=== PATIENT | male | born 1990 | race Caucasian/White ===

== ENCOUNTER 2022-05-25 22:05 | Emergency (ER) | payer OTHER, SELFPAY ==
[2022-05-25 22:06] VITALS: BP 143/93; PULSE 78; RESP 16; TEMP 36.8; O2SAT 96; BMI 27.3
--- NOTE | 2022-05-25 22:33 | EX.ED.DYSGE1 ---
HPI History of Present Illness Chief Complaint: General Illness Informant: patient Narrative Narrative: 3-day worsening sore throat. No fevers. No cough. No headache. No vomiting diarrhea. 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 Started having symptoms 3 days ago. Home test yesterday for COVID is positive. He had COVID back in November 2020 with just loss of taste or smell. No past medical history. He states his throat feels raw and wants rule out for strep. He is tolerating oral fluids. Prior similar symptoms: No PFSH PFSH Medical History no medical history Home Medications oxycodone-acetaminophen 5 mg-325 mg tablet 1 - 2 tab PO Q6H PRN PRN Pain #60 tabs 04/15/17 [Rx Last Taken Unknown] lidocaine HCl 2 % mucosal solution (Lidocaine Viscous) 5 ml mucous membrane TID PRN pain #100 mL 05/26/22 [Rx Last Taken Unknown] nirmatrelvir 300 mg (150 mg x 2)-ritonavir 100 mg tablet (EUA) (Paxlovid 300 mg () See Rx Instructions PO .COMPLEX #30 tabs 05/26/22 [Rx Last Taken Unknown] Allergy/AdvReac Type Severity Reaction Status Date / Time No Known Allergies Allergy Verified 05/25/22 22:08 Social History Smoking Status: Never smoker ROS ROS ED Constitutional Constitutional ED: Denies chills, fever(s) or sweats Eyes Eyes: Denies change in vision ENT ENT ED: Reports sore throat; Denies dysphagia Cardiovascular Cardiovascular: Denies chest pain, leg edema, palpitations or racing heartbeat Respiratory/Chest Respiratory/Chest: Denies cough, dyspnea or dyspnea on exertion Gastrointestinal Gastrointestinal: Denies abdominal pain, diarrhea, nausea or vomiting Genitourinary Genitourinary ED: Denies dysuria, hematuria or urinary frequency Musculoskeletal Musculoskeletal: Denies back pain, extremity pain or neck pain Integumentary Denies rash or wounds Neurologic Neurologic: Denies headache(s), paresthesias or weakness EXAM Physical Exam Const Vital Signs: 05/25/22 22:06 Temperature 98.2 F Temperature Source Temporal Pulse Rate 78 Respiratory Rate 16 Blood Pressure 143/93 H Blood Pressure Mean 109 Pulse Ox 96 Oxygen Delivery Method Room Air Positive well nourished and well developed General Appearance ED: well developed and NAD HEENT Reports moist mucous membranes HEENT Narrative: Posterior pharyngeal erythema, 1+ symmetric tonsils there are small ulcerations in the soft palate is scattered. Airway patent. normocephalic and atraumatic Eyes PERRL, EOMs intact bilaterally and conjunctivae normal General Eye ED: Yes normal appearance of both eyes Neck no lymphadenopathy and supple General: Negative for tenderness Chest Wall Chest: Negative for tenderness Resp normal respiratory effort and normal air movement Effort and Inspection: symmetric chest movement; Negative for respiratory distress Cardio regular rate, regular rhythm and no murmurs Peripheral Pulses: pulses 2+ throughout GI normal to inspection, nondistended, normoactive bowel sounds and non-tender Palpation: Negative for guarding or rebound tenderness present Back/Spine no CVA tenderness and no thoracic nor lumbar tenderness Extremity normal to inspection General Extremety ED: Negative for edema or tenderness General Extremity: Negative for edema Neuro oriented x3 and no sensory deficits noted Sensorium / Orientation: awake and alert Skin no rashes or lesions noted and no wounds MDM MDM MDM Narrative Medical decision making narrative: Patient vital stable nontoxic posterior pharynx erythema with some ulcerations on the soft palate. Rapid strep was negative. He was given Decadron for symptom control. Discussed with him could be viral coxsackie's with [id number] with authorizations. He had positive COVID test at home. He is 3 days and symptoms, he is within the 5-day treatment window for Paxilovid. I offered treatment for which he agreed. He has not any home medications for cross-reactivity's. Additionally given GI cocktail with viscous lidocaine prescription for pharyngitis symptoms. He is given follow-up as an outpatient. Lab Data Attestation: I reviewed the patient's lab results. Discharge Plan Triage Chief Complaint: General Illness ED Provider: Felipe Stover Dx/Rx/DC Orders Clinical Impression: COVID-19 virus infection, Pharyngitis Instructions: Coronavirus Disease 2019 (COVID-19): Caring for Yourself or Others, Self-Care for Sore Throats Prescriptions: New Paxlovid (EUA) 300 mg (150 mg x 2)-100 mg tablet See Rx Instructions .ROUTE .COMPLEX Qty: 30 0RF Rx Instructions: take TWO 150 mg tablets of nirmatrelvir with ONE 100 mg tablet of ritonavir twice daily for 5 days lidocaine HCl [Lidocaine Viscous] 2 % solution 5 ml mucous membrane TID PRN (Reason: pain) Qty: 100 0RF No Action oxycodone-acetaminophen 1 TABLET tablet 1 - 2 tab PO Q6H PRN PRN (Reason: Pain) Qty: 60 0RF Primary Care Provider: Care Physician,No Primary Referrals: Lawanda Rosales [NON-STAFF] - 1 Week if not improving Care Physician,No Primary [Primary Care Provider] - Disposition Disposition: Home, Self Care Discharge Date/Time: 05/26/22 01:17
[2022-05-25] MEDS: dexAMETHasone 4 MG Tablet 12 MG PO (22:44)
[2022-05-26] MEDS: Mag Hydrox/Al Hydrox/Simeth 30 ML UDC PO (00:26)
== END 2022-05-26 01:17 | disposition home or self-care (01) ==
PROVIDERS: Emergency Provider Emergency Medicine; Visit Provider Emergency Medicine
DX: U07.1 COVID-19 (principal); J02.9 Acute pharyngitis, unspecified
CPT/HCPCS: 87880; 99283

== ENCOUNTER → 2024-11-02 | Outpatient (CLI) | payer OTHER, SELFPAY | END | disposition home or self-care (01) | LOC: PSN 10:40 | PROVIDERS: PCP Family Medicine; Referring Provider Family Medicine; Visit Provider Family Medicine | DX: R06.02 Shortness of breath (principal) | CPT/HCPCS: 94060; 94726; 94729 ==

== ENCOUNTER → 2025-01-20 | Outpatient (CLI) | payer OTHER, SELFPAY ==
--- NOTE | 2025-01-20 | LES_PTH ---
PATIENT: ALEXIA AHUMADA LOC: [facility] U#:[id number] AGE/SX: 34/M ROOM: RE01/20/[address]: Dr. Reynold Calzada MD : [id number] BED: DIS: 01/20/2025 SPEC #: [id number] RECD: 01/20/25 15:07 STATUS: ANGIE REHenrry #: [id number] GEORGE: 01/20/25 00:[address]: Reynold Calzada DEPT: SURGICAL PATHOLOGY RECD BY: Cassandra Bellamy ENTERED: 01/23/25 08:29 SP TYPE: Lesion OTHR DR: Lisa Mahmood MD Tissues: Skin of eyelid, NOS Procedures: Special Stain Group I Surgery Specimen Level IV AFB Stain (control) GMS Stain (control) HEADER OPERATION: Removal of growth right lower conjunctiva PRE-OP DIAGNOSIS: Pyogenic granuloma right conjunctiva TISSUE SUBMITTED: Right lower conjunctiva MICROSCOPIC DIAGNOSIS Right conjunctiva, biopsy: * Polypoid granulation tissue with necrotizing granulomas. * Negative for foreign particles with polarized light examination. * AFB stain is negative for acid fast bacilli. * PASD stain is negative for fungal organisms. MICROSCOPIC DESCRIPTION Slides are reviewed. Matched controls reacted appropriately. GROSS DESCRIPTION Received in fixative is one container labeled with the patient's name and designated Pyogenic granuloma right conjunctiva. The specimen consists of two fragments of glistening saravia-galicia soft tissue measuring 1.5 x 1 x 0.3cm in aggregate. TS1. Mr 01/23/2025 CPT:53499,24698V1
== END | disposition home or self-care (01) ==
LOC: LABSPEC 15:19
PROVIDERS: PCP Family Medicine; Referring Provider Ophthalmology; Visit Provider Ophthalmology
DX: H11.221 Conjunctival granuloma, right eye (principal)
CPT/HCPCS: 88305; 88312